=== PATIENT | male | born 1995 | race Two or more races ===

== ENCOUNTER 2024-09-12 05:48 | Day surgery (SDC) | payer OTHER ==
[~2024-09-12 05:48] MED LIST: [UNRECOGNIZED DRUG - OTHER]
[2024-09-12] MEDS ORDERED: METRONIDAZOLE/SODIUM CHLORIDE 500 MG/100 ML PIGGYBACK IV ONE (08:45)
[2024-09-12] MEDS ORDERED: LIDOCAINE HCL 2%/EPINEPHRINE 20ML VIAL IJ ONE (08:45)
[2024-09-12] MEDS ORDERED: BUPIVACAINE HCL 30 ML VIAL IJ ONE (08:45)
[2024-09-12] MEDS ORDERED: CEFTRIAXONE SODIUM 2,000 MG VIAL IV ONE (08:45)
[2024-09-12] MEDS ORDERED: POVIDONE-IODINE 118 ML BOTT TOP ONE (08:45)
[2024-09-12] MEDS ORDERED: HEMOSTATIC MATRIX 1 KIT KIT TOP SCH (09:00)
[2024-09-12] MEDS ORDERED: DIBUCAINE 15 GM OINT..GM. TUBE RECTAL ONE (09:00)
[2024-09-12] MEDS ORDERED: ACETAMINOPHEN500 M2 PO (10:20)
[2024-09-12] MEDS ORDERED: NEURONTIN300 MG PO (10:20)
== END 2024-09-12 11:50 | disposition home or self-care (01) ==
LOC: CIR.AMB 05:48 → U 05:48 → CIR.AMB 11:50
PROVIDERS: ATTEND Surgery
DX: K60.30 Anal fistula, unspecified (principal); K62.89 Other specified diseases of anus and rectum

== ENCOUNTER 2025-02-02 05:56 | Day surgery (SDC) | payer OTHER ==
[2025-01-25 14:24] VITALS: BP 118/73
[~2025-02-02] VITALS: Ht 172.7 cm; Wt 63.5 kg
[~2025-02-02 05:56] MED LIST changes: +ACETAMINOPHEN500 M2 PO; +DEXAMETHASONE0.5 MG PO; +NEURONTIN300 MG PO
[2025-02-02] MEDS ORDERED: LIDOCAINE HCL 1%/EPINEPHRINE 20ML VIAL IJ ONE (15:00)
[2025-02-02] MEDS ORDERED: HEMOSTATIC MATRIX 1 KIT KIT TOP ONE (15:00)
[2025-02-02] MEDS ORDERED: BUPIVACAINE HCL/PF 0.25% 30ML VIAL InF ONE (15:00)
[2025-02-02] MEDS ORDERED: DIBUCAINE 15 GM OINT..GM. TUBE RECTAL ONE (15:00)
[2025-02-02] MEDS ORDERED: CEFTRIAXONE SODIUM 2,000 MG VIAL IV ONE (15:00)
[2025-02-02] MEDS ORDERED: METRONIDAZOLE/SODIUM CHLORIDE 500 MG/100 ML PIGGYBACK IV ONE (15:00)
[2025-02-02] MEDS ORDERED: NEURONTIN300 MG PO (15:24)
[2025-02-02] MEDS ORDERED: COLACE100 MG PO (15:24)
[2025-02-02] MEDS ORDERED: TRAM1TAB98 PO (15:24)
[2025-02-02] MEDS ORDERED: AMOX1TAB5 PO (15:50)
== END 2025-02-02 18:20 | disposition home or self-care (01) ==
LOC: CIR.AMB 05:56
PROVIDERS: ATTEND Surgery
DX: K60.321 Anal fistula, complex, initial (principal); K62.89 Other specified diseases of anus and rectum